=== PATIENT | male | born 1990 ===

== ENCOUNTER → 2023-10-06 | Outpatient (REF) | payer OTHER ==
[2023-10-06 11:55] LABS: SEMEN APPEARANCE OPAQUE (OPAQUE); SEMEN VISCOSITY LIQUID (LIQUID); SEMEN VOLUME 4.8 ML (2.0-5.0); SEMEN WBC >1 M/ml (<=1 M/ml); SEMEN pH 8.5 (7.0-8.0)
== END ==
LOC: M LAB REF 10:41
PROVIDERS: ATTEND Physician Assistant
DX: N46.9 Male infertility, unspecified (principal)